=== PATIENT | male | born 1990 | race Caucasian/White ===

== ENCOUNTER 2021-02-10 14:19 | Inpatient (IN) | payer OTHER ==
[~2021-02-10] VITALS: Ht 177.8 cm; Wt 86.2 kg
[~2021-02-10 14:19] MED LIST: ZITHROMAX250 MG PO; ZOFRAN ODT 4 MG4 MG SL
[2021-02-10 15:38] LABS: HEMOGLOBIN 14.7 gm/dl (14.0-17.5); RED BLOOD COUNT 4.93 M/UL (4.20-5.50); WHITE BLOOD COUNT 7.2 K/UL (4.5-11.0)
[2021-02-10 16:07] LABS: BUN/CREATININE RATIO 12 (0-10)
[2021-02-11 08:08] LABS: HEMOGLOBIN 13.6 gm/dl (14.0-17.5); RED BLOOD COUNT 4.81 M/UL (4.20-5.50)
[2021-02-11 08:29] LABS: BUN/CREATININE RATIO 10 (0-10)
[2021-02-11] MEDS ORDERED: DOXYCYCLINE HY100 M2 PO (09:26)
[2021-02-11] MEDS ORDERED: KEPPRA500 MG PO (09:26)
[2021-02-11] MEDS ORDERED: AUGMENTIN 875-1 EACH PO (09:26)
--- NOTE | 2021-02-11 11:13 | NUR ---
DR. GARRISON NOTIFIED REGUARDING PATIENTS ELEVATED BLOOD PRESSURE. WILL PUT IN NEW MEDICATION ORDERS.
[2021-02-11] MEDS ORDERED: HYDRALAZINE HCL25 MG PO (15:05)
== END 2021-02-11 19:25 | disposition home or self-care (01) | DRG 100 ==
LOC: ER1 14:19 → CDU 18:07 → MED SURG 4 20:49
PROVIDERS: Family Medicine; ADMIT Internal Medicine
PROC: B24BZZ4 Ultrasonography of Heart with Aorta, Transesophageal (ICD-10-PCS; principal; 2021-02-10)
DX: G40.909 Epilepsy, unspecified, not intractable, without status epilepticus (principal); J69.0 Pneumonitis due to inhalation of food and vomit; G93.41 Metabolic encephalopathy; Z20.822 Contact with and (suspected) exposure to COVID-19; E87.6 Hypokalemia; F19.10 Other psychoactive substance abuse, uncomplicated
CPT/HCPCS: ECHO; 36600; 51701; 70450; 70551; 71045; 71046; 80053; 80307; 82550; 82553; 82803; 83735; 83874; 84439; 84443; 84484; 85025; 85027; 92610; 93005; 93306; 99285; G0480; J0360; J1650; J1953; J3480; J7030; U0002

== ENCOUNTER → 2021-03-10 | Outpatient (CLI) | payer OTHER ==
[~2021-03-10] MED LIST changes: +AUGMENTIN 875-1 EACH PO; +DOXYCYCLINE HY100 M2 PO; +HYDRALAZINE HCL25 MG PO; +KEPPRA500 MG PO
== END ==
LOC: CATH 03-04 10:00
DX: R56.9 Unspecified convulsions (principal); R55 Syncope and collapse

== ENCOUNTER → 2021-03-10 | Outpatient (CLI) | payer OTHER | LOC: HEART 5 14:33 | DX: R55 Syncope and collapse (principal); R56.9 Unspecified convulsions ==